=== PATIENT | female | born 1960 | race Caucasian/White ===

== ENCOUNTER → 2023-08-11 18:44 | Outpatient (REF) | payer OTHER, SELFPAY | LOC: MRI 18:44 | PROVIDERS: ATTENDING PHYSICIAN Psychiatry & Neurology Neurology; FAMILY PHYSICIAN Family Medicine | DX: G36.0 Neuromyelitis optica [Devic] (principal) | CPT/HCPCS: 70553; 72156; A9575 ==

== ENCOUNTER → 2023-08-13 17:33 | Outpatient (REF) | payer OTHER, SELFPAY | LOC: MRI 3T 17:33 | PROVIDERS: ATTENDING PHYSICIAN Psychiatry & Neurology Neurology; FAMILY PHYSICIAN Family Medicine | DX: G36.0 Neuromyelitis optica [Devic] (principal) | CPT/HCPCS: 72157; A9575 ==

== ENCOUNTER → 2023-08-16 11:51 | Outpatient (REF) | payer OTHER, SELFPAY | LOC: PAVMRI 11:51 | PROVIDERS: ATTENDING PHYSICIAN Psychiatry & Neurology Neurology; FAMILY PHYSICIAN Family Medicine | DX: G36.0 Neuromyelitis optica [Devic] (principal) | CPT/HCPCS: 72158; A9575 ==

== ENCOUNTER → 2024-03-28 07:57 | Outpatient (REF) | payer OTHER, SELFPAY | LOC: RAD 07:57 | PROVIDERS: ATTENDING PHYSICIAN Family Medicine | DX: Z78.0 Asymptomatic menopausal state (principal) | CPT/HCPCS: 77080 ==

== ENCOUNTER → 2024-06-06 07:08 | Outpatient (REF) | payer OTHER, SELFPAY | LOC: RAD 07:08 | PROVIDERS: ATTENDING PHYSICIAN Student in an Organized Health Care Education/Training Program | DX: D13.5 Benign neoplasm of extrahepatic bile ducts (principal) | CPT/HCPCS: 76700 ==